=== PATIENT | female | born 1940 | race Caucasian/White ===

== ENCOUNTER 2021-01-03 12:41 | Inpatient (IN) | payer OTHER ==
[~2021-01-03] VITALS: Ht 167.6 cm; Wt 109.4 kg
[2021-01-03] VITALS (11 sets, daily range): BP systolic 126–144; BP diastolic 62–91
[2021-01-03 14:16] LABS: HEMATOCRIT 34.3 % (37.0-47.0); LYMPH # 0.7 10*3/uL (1.3-4.4); LYMPH % 9.2 % (27.0-41.0); MEAN CELL VOLUME 98.8 fl (81.0-99.0); MEAN CORPUSCULAR HGB 29.7 pg (27.0-31.0); MEAN PLATELET VOLUME 9.7 fl (9.6-12.3); MONO # 0.2 10*3/uL (0.1-1.0); NEUT % 87.9 % (47.0-73.0); PLATELET COUNT AUTOMATED 409 10*3/uL (130-400); RED BLOOD COUNT 3.47 10*6/uL (4.10-5.10); WHITE BLOOD COUNT 7.9 10*3/uL (4.8-10.8)
[2021-01-03 14:17] LABS: ACT PARTIAL THROMBO TIME 23.7 SECONDS (20.0-32.1); INTERNATIONAL NORM RATIO 0.9 (2.0-3.5)
[2021-01-03 14:19] LABS: ALBUMIN 2.4 gm/dl (3.1-4.5); CREATININE 1.49 mg/dL (0.55-1.02); TOTAL PROTEIN 6.5 gm/dL (6.4-8.2); TROPONIN I 0.018 ng/ml (<0.045)
[2021-01-04] VITALS: BP 111/59
[2021-01-04 06:05] LABS: BASO % 0.2 % (0.0-1.0); EOS % 0.4 % (1.0-4.0); HEMATOCRIT 33.1 % (37.0-47.0); LYMPH # 2.3 10*3/uL (1.3-4.4); LYMPH % 29.2 % (27.0-41.0); MEAN CELL VOLUME 99.1 fl (81.0-99.0); MEAN CORPUSCULAR HGB 30.2 pg (27.0-31.0); MEAN CORPUSCULAR HGB CONC 30.5 g/dl (33.0-37.0); MEAN PLATELET VOLUME 9.7 fl (9.6-12.3); MONO # 0.9 10*3/uL (0.1-1.0); MONO % 11.2 % (3.0-9.0); NEUT # 4.6 10*3/uL (2.3-7.9); NEUT % 57.6 % (47.0-73.0); PLATELET COUNT AUTOMATED 413 10*3/uL (130-400); RED BLOOD COUNT 3.34 10*6/uL (4.10-5.10); RED CELL DISTRI WIDTH 17.1 % (0-14.5)
[2021-01-04 06:13] LABS: CREATININE 1.38 mg/dL (0.55-1.02); FREE T4 1.18 ng/dl (0.76-1.46); POTASSIUM 4.4 mmol/L (3.5-5.1)
[2021-01-04 06:19] LABS: THYROID STIM HORMONE (HS) 1.05 uIU/ml (0.358-4.75)
[2021-01-04 07:27] LABS: VITAMIN D, 25-HYDROXY 23.1 ng/mL (30-100)
[2021-01-04 08:00] VITALS: BP 136/64
[2021-01-04] MEDS ORDERED: GLUCOPHAGE1000 MG PO (11:05)
[2021-01-04] MEDS ORDERED: NEURONTIN600 MG PO (11:05)
[2021-01-04] MEDS ORDERED: ACTOS30 M1 PO (11:06)
[2021-01-04] MEDS ORDERED: PAMELOR25 MG PO (11:07)
[2021-01-04] MEDS ORDERED: FERROUS GLUCON324 MG PO (11:08)
[2021-01-04] MEDS ORDERED: CARDIZEM30 MG PO (11:09)
[2021-01-04] MEDS ORDERED: HYDRALAZINE HYD50 MG PO (11:10)
[2021-01-04] MEDS ORDERED: LACTINEX 0.2 MG1 TAB PO (11:11)
[2021-01-04] MEDS ORDERED: METOPROLOL SUCC25 M2 PO (11:12)
[2021-01-04] MEDS ORDERED: MAGNESIUM400 M1 PO (11:15)
[2021-01-04] MEDS ORDERED: GLIPIZIDE/METFORMIN PO (11:15)
[2021-01-04] MEDS ORDERED: PRILOSEC20 M1 PO (11:15)
[2021-01-04 12:00] VITALS: BP 120/60
[2021-01-04 16:00] VITALS: BP 135/68
[2021-01-04 20:00] VITALS: BP 142/70
[2021-01-05] VITALS: BP 124/64
[2021-01-05 05:59] LABS: BASO % 0.2 % (0.0-1.0); EOS # 0.1 10*3/uL (0.0-0.4); EOS % 0.5 % (1.0-4.0); HEMATOCRIT 31.6 % (37.0-47.0); LYMPH # 2.1 10*3/uL (1.3-4.4); LYMPH % 22.5 % (27.0-41.0); MEAN CELL VOLUME 99.7 fl (81.0-99.0); MEAN CORPUSCULAR HGB 29.3 pg (27.0-31.0); MEAN CORPUSCULAR HGB CONC 29.4 g/dl (33.0-37.0); MEAN PLATELET VOLUME 9.5 fl (9.6-12.3); MONO # 0.9 10*3/uL (0.1-1.0); MONO % 9.6 % (3.0-9.0); NEUT # 6.1 10*3/uL (2.3-7.9); NEUT % 65.8 % (47.0-73.0); PLATELET COUNT AUTOMATED 339 10*3/uL (130-400); RED BLOOD COUNT 3.17 10*6/uL (4.10-5.10); RED CELL DISTRI WIDTH 16.8 % (0-14.5); WHITE BLOOD COUNT 9.2 10*3/uL (4.8-10.8)
[2021-01-05 06:13] LABS: CREATININE 1.39 mg/dL (0.55-1.02); POTASSIUM 3.7 mmol/L (3.5-5.1)
[2021-01-05 08:00] VITALS: BP 138/66
[2021-01-05 08:55] VITALS: BP 128/58
[2021-01-05 12:00] VITALS: BP 128/56
[2021-01-05 16:00] VITALS: BP 122/69
[2021-01-05 20:00] VITALS: BP 107/58
[2021-01-06] VITALS: BP 122/67
[2021-01-06 06:03] LABS: CREATININE 1.39 mg/dL (0.55-1.02); POTASSIUM 3.7 mmol/L (3.5-5.1)
[2021-01-06 06:07] LABS: BASO % 0.4 % (0.0-1.0); EOS # 0.1 10*3/uL (0.0-0.4); EOS % 0.8 % (1.0-4.0); HEMATOCRIT 33.3 % (37.0-47.0); LYMPH # 2.2 10*3/uL (1.3-4.4); LYMPH % 25.4 % (27.0-41.0); MEAN CORPUSCULAR HGB 29.4 pg (27.0-31.0); MEAN CORPUSCULAR HGB CONC 29.4 g/dl (33.0-37.0); MEAN PLATELET VOLUME 9.5 fl (9.6-12.3); MONO # 0.8 10*3/uL (0.1-1.0); MONO % 9.6 % (3.0-9.0); NEUT # 5.2 10*3/uL (2.3-7.9); NEUT % 61.7 % (47.0-73.0); PLATELET COUNT AUTOMATED 329 10*3/uL (130-400); RED BLOOD COUNT 3.33 10*6/uL (4.10-5.10); RED CELL DISTRI WIDTH 16.6 % (0-14.5); WHITE BLOOD COUNT 8.5 10*3/uL (4.8-10.8)
[2021-01-06 07:56] VITALS: BP 130/52
[2021-01-06 08:16] LABS: BILIRUBIN Negative (Negative); BLOOD Negative (Negative); CLARITY Turbid (Clear); COLOR Yellow (Yellow); GLUCOSE Trace (Negative); KETONE Trace (Negative); LEUKO ESTERASE 3+ (Negative); NITRITE Negative (Negative); SPECIFIC GRAVITY 1.015 (1.001-1.030); UROBILINOGEN 0.2 E.U./dl (0.0-1.0)
[2021-01-06 08:23] LABS: PH >= 9.0 (4.5-8.0)
[2021-01-06 08:25] LABS: BACTERIA 4+; WBC 31-40 wbc/hpf (0-5)
[2021-01-06 12:00] VITALS: BP 144/32
[2021-01-06 15:44] VITALS: BP 110/36
[2021-01-06 20:00] VITALS: BP 122/50
[2021-01-07] VITALS: BP 104/65
[2021-01-07 06:26] LABS: BASO % 0.4 % (0.0-1.0); EOS # 0.1 10*3/uL (0.0-0.4); EOS % 1.5 % (1.0-4.0); HEMATOCRIT 32.4 % (37.0-47.0); LYMPH # 2.1 10*3/uL (1.3-4.4); LYMPH % 24.5 % (27.0-41.0); MEAN CORPUSCULAR HGB 29.6 pg (27.0-31.0); MEAN CORPUSCULAR HGB CONC 29.6 g/dl (33.0-37.0); MEAN PLATELET VOLUME 9.7 fl (9.6-12.3); MONO # 0.9 10*3/uL (0.1-1.0); MONO % 10.3 % (3.0-9.0); NEUT # 5.2 10*3/uL (2.3-7.9); NEUT % 61.6 % (47.0-73.0); PLATELET COUNT AUTOMATED 306 10*3/uL (130-400); RED BLOOD COUNT 3.24 10*6/uL (4.10-5.10); RED CELL DISTRI WIDTH 16.4 % (0-14.5); WHITE BLOOD COUNT 8.5 10*3/uL (4.8-10.8)
[2021-01-07 06:51] LABS: CREATININE 1.63 mg/dL (0.55-1.02); POTASSIUM 3.5 mmol/L (3.5-5.1)
[2021-01-07 07:40] VITALS: BP 110/50
[2021-01-07 11:40] VITALS: BP 110/55
[2021-01-07 16:00] VITALS: BP 120/56
[2021-01-07 20:00] VITALS: BP 119/53
[2021-01-08] VITALS: BP 113/54
[2021-01-08 06:06] LABS: CREATININE 1.54 mg/dL (0.55-1.02)
[2021-01-08 06:35] LABS: POTASSIUM 4.5 mmol/L (3.5-5.1)
[2021-01-08 08:00] VITALS: BP 112/83
[2021-01-08 12:00] VITALS: BP 116/83
[2021-01-08 16:00] VITALS: BP 116/63
[2021-01-08 20:00] VITALS: BP 106/61
[2021-01-09] VITALS: BP 105/56
[2021-01-09 06:20] LABS: BASO % 0.3 % (0.0-1.0); EOS # 0.1 10*3/uL (0.0-0.4); EOS % 1.9 % (1.0-4.0); HEMATOCRIT 29.3 % (37.0-47.0); LYMPH # 2.3 10*3/uL (1.3-4.4); MEAN CELL VOLUME 99.3 fl (81.0-99.0); MEAN CORPUSCULAR HGB 29.2 pg (27.0-31.0); MEAN CORPUSCULAR HGB CONC 29.4 g/dl (33.0-37.0); MEAN PLATELET VOLUME 9.2 fl (9.6-12.3); NEUT # 3.9 10*3/uL (2.3-7.9); NEUT % 52.2 % (47.0-73.0); PLATELET COUNT AUTOMATED 254 10*3/uL (130-400); RED BLOOD COUNT 2.95 10*6/uL (4.10-5.10); RED CELL DISTRI WIDTH 16.2 % (0-14.5); WHITE BLOOD COUNT 7.5 10*3/uL (4.8-10.8)
[2021-01-09 06:29] LABS: INTERNATIONAL NORM RATIO 1.1 (2.0-3.5)
[2021-01-09 06:39] LABS: CREATININE 1.41 mg/dL (0.55-1.02)
[2021-01-09 06:47] LABS: POTASSIUM 3.4 mmol/L (3.5-5.1)
[2021-01-09 07:00] VITALS: BP 125/50
[2021-01-09 11:45] VITALS: BP 131/78
[2021-01-09 16:00] VITALS: BP 120/91
[2021-01-09 20:00] VITALS: BP 118/62
[2021-01-10] VITALS (9 sets, daily range): BP systolic 118–145; BP diastolic 47–74
[2021-01-10 06:37] LABS: BASO % 0.4 % (0.0-1.0); EOS # 0.2 10*3/uL (0.0-0.4); EOS % 1.9 % (1.0-4.0); HEMATOCRIT 30.2 % (37.0-47.0); LYMPH # 2.3 10*3/uL (1.3-4.4); LYMPH % 27.5 % (27.0-41.0); MEAN CORPUSCULAR HGB 29.2 pg (27.0-31.0); MEAN CORPUSCULAR HGB CONC 29.5 g/dl (33.0-37.0); MEAN PLATELET VOLUME 9.7 fl (9.6-12.3); MONO # 1.2 10*3/uL (0.1-1.0); MONO % 14.9 % (3.0-9.0); NEUT # 4.4 10*3/uL (2.3-7.9); NEUT % 53.4 % (47.0-73.0); NUCLEATED RED BLOOD CELL 0.2 % (0.0-0.0); PLATELET COUNT AUTOMATED 259 10*3/uL (130-400); RED BLOOD COUNT 3.05 10*6/uL (4.10-5.10); RED CELL DISTRI WIDTH 16.5 % (0-14.5); WHITE BLOOD COUNT 8.3 10*3/uL (4.8-10.8)
[2021-01-10 06:49] LABS: CREATININE 1.37 mg/dL (0.55-1.02); POTASSIUM 3.5 mmol/L (3.5-5.1)
[2021-01-10] MEDS ORDERED: NEURONTIN600 MG PO (15:57)
[2021-01-10] MEDS ORDERED: FUROSEMIDE40 MG PO (15:57)
[2021-01-10] MEDS ORDERED: Humalog SQ (15:57)
[2021-01-10] MEDS ORDERED: VITAMIN D350 MC2 PO (15:57)
[2021-01-10] MEDS ORDERED: METOPROLOL SUC100 M1 PO (15:57)
[2021-01-10] MEDS ORDERED: HYDROCODONE-AC1 EAC1 PO (16:27)
[2021-01-11] VITALS (8 sets, daily range): BP systolic 127–149; BP diastolic 55–86
[2021-01-11 06:44] LABS: BASO % 0.4 % (0.0-1.0); EOS # 0.2 10*3/uL (0.0-0.4); EOS % 1.9 % (1.0-4.0); HEMATOCRIT 31.9 % (37.0-47.0); LYMPH # 2.6 10*3/uL (1.3-4.4); MEAN CELL VOLUME 100.9 fl (81.0-99.0); MEAN CORPUSCULAR HGB 29.4 pg (27.0-31.0); MEAN CORPUSCULAR HGB CONC 29.2 g/dl (33.0-37.0); MEAN PLATELET VOLUME 9.4 fl (9.6-12.3); MONO # 1.2 10*3/uL (0.1-1.0); MONO % 12.9 % (3.0-9.0); NEUT # 5.1 10*3/uL (2.3-7.9); NEUT % 54.9 % (47.0-73.0); NUCLEATED RED BLOOD CELL 0.3 % (0.0-0.0); PLATELET COUNT AUTOMATED 271 10*3/uL (130-400); RED BLOOD COUNT 3.16 10*6/uL (4.10-5.10); RED CELL DISTRI WIDTH 16.5 % (0-14.5); WHITE BLOOD COUNT 9.3 10*3/uL (4.8-10.8)
[2021-01-11 07:02] LABS: CREATININE 1.13 mg/dL (0.55-1.02); POTASSIUM 3.6 mmol/L (3.5-5.1)
[2021-01-12] VITALS (8 sets, daily range): BP systolic 107–149; BP diastolic 60–90
[2021-01-12 01:37] LABS: HEMATOCRIT 31.8 % (37.0-47.0); MEAN CELL VOLUME 100.6 fl (81.0-99.0); MEAN CORPUSCULAR HGB 29.4 pg (27.0-31.0); MEAN CORPUSCULAR HGB CONC 29.2 g/dl (33.0-37.0); MEAN PLATELET VOLUME 9.4 fl (9.6-12.3); NUCLEATED RED BLOOD CELL 0.1 10*3/uL (0.0-0.0); NUCLEATED RED BLOOD CELL 0.5 % (0.0-0.0); PLATELET COUNT AUTOMATED 306 10*3/uL (130-400); RED BLOOD COUNT 3.16 10*6/uL (4.10-5.10); RED CELL DISTRI WIDTH 16.5 % (0-14.5); WHITE BLOOD COUNT 11.8 10*3/uL (4.8-10.8)
[2021-01-12 01:58] LABS: ALBUMIN 1.9 gm/dl (3.1-4.5); CREATININE 1.47 mg/dL (0.55-1.02); POTASSIUM 3.7 mmol/L (3.5-5.1); TOTAL PROTEIN 6.3 gm/dL (6.4-8.2)
[2021-01-12 01:59] LABS: TROPONIN I 0.015 ng/ml (<0.045)
[2021-01-12 02:20] LABS: PLATELET SUFFICIENCY NORMAL (NORMAL); TOTAL CELLS COUNTED 100 #CELLS
[2021-01-12 03:55] LABS: HEMATOCRIT 30.8 % (37.0-47.0); MEAN CELL VOLUME 100.3 fl (81.0-99.0); MEAN CORPUSCULAR HGB 29.6 pg (27.0-31.0); MEAN CORPUSCULAR HGB CONC 29.5 g/dl (33.0-37.0); MEAN PLATELET VOLUME 9.4 fl (9.6-12.3); NUCLEATED RED BLOOD CELL 0.1 10*3/uL (0.0-0.0); NUCLEATED RED BLOOD CELL 0.7 % (0.0-0.0); PLATELET COUNT AUTOMATED 286 10*3/uL (130-400); RED BLOOD COUNT 3.07 10*6/uL (4.10-5.10); RED CELL DISTRI WIDTH 16.6 % (0-14.5); WHITE BLOOD COUNT 11.8 10*3/uL (4.8-10.8)
[2021-01-12 04:08] LABS: CREATININE 1.44 mg/dL (0.55-1.02); POTASSIUM 3.7 mmol/L (3.5-5.1)
[2021-01-12 04:55] LABS: BURR CELLS FEW; PLATELET SUFFICIENCY NORMAL (NORMAL); TOTAL CELLS COUNTED 100 #CELLS
[2021-01-13] VITALS: BP 114/49; BP 135/62
[2021-01-13 06:45] LABS: POTASSIUM 3.5 mmol/L (3.5-5.1)
[2021-01-13 06:51] LABS: CREATININE 1.54 mg/dL (0.55-1.02)
[2021-01-13 08:00] VITALS: BP 131/59
[2021-01-13 12:00] VITALS: BP 109/76
[2021-01-13 18:00] VITALS: BP 128/67
[2021-01-13 20:00] VITALS: BP 122/47
[2021-01-14] VITALS: BP 114/49
[2021-01-14 08:00] VITALS: BP 150/70
[2021-01-14 08:30] VITALS: BP 116/68
[2021-01-14 12:00] VITALS: BP 134/64
[2021-01-14 16:00] VITALS: BP 131/96
[2021-01-14 20:00] VITALS: BP 86/47
[2021-01-15] VITALS: BP 100/56
[2021-01-15 08:00] VITALS: BP 120/50
[2021-01-15 08:30] VITALS: BP 108/50
[2021-01-15 12:00] VITALS: BP 122/45
[2021-01-15] MEDS ORDERED: XARE15TA PO (14:12)
[2021-01-15] MEDS ORDERED: PACERONE200 MG PO (14:12)
[2021-01-15] MEDS ORDERED: OXYCONTIN10 M1 PO (14:12)
[2021-01-15] MEDS ORDERED: OXYCODONE HCL5 MG PO (14:12)
[2021-01-15 16:00] VITALS: BP 119/50
== END 2021-01-15 16:13 | DRG 551 ==
LOC: ED 12:41 → EDHOLD 15:24 → 5E 15:24
PROVIDERS: Emergency Medicine; Family Medicine; Hospitalist; Internal Medicine; Social Worker Clinical; Student in an Organized Health Care Education/Training Program; ADMIT Internal Medicine; ATTEND Internal Medicine
PROC: 5A2204Z Restoration of Cardiac Rhythm, Single (ICD-10-PCS; principal; 2021-01-10)
PROC: B24BZZ4 Ultrasonography of Heart with Aorta, Transesophageal (ICD-10-PCS; 2021-01-10)
DX: S32.020A Wedge compression fracture of second lumbar vertebra, initial encounter for closed fracture (principal); N17.0 Acute kidney failure with tubular necrosis; E43 Unspecified severe protein-calorie malnutrition; I50.33 Acute on chronic diastolic (congestive) heart failure; I13.0 Hypertensive heart and chronic kidney disease with heart failure and stage 1 through stage 4 chronic kidney disease, or unspecified chronic kidney disease; E87.1 Hypo-osmolality and hyponatremia; L12.0 Bullous pemphigoid; Z68.41 Body mass index [BMI] 40.0-44.9, adult; L97.929 Non-pressure chronic ulcer of unspecified part of left lower leg with unspecified severity; L97.819 Non-pressure chronic ulcer of other part of right lower leg with unspecified severity; N39.0 Urinary tract infection, site not specified; I48.0 Paroxysmal atrial fibrillation; E11.65 Type 2 diabetes mellitus with hyperglycemia; D64.9 Anemia, unspecified; D47.3 Essential (hemorrhagic) thrombocythemia; Z20.822 Contact with and (suspected) exposure to COVID-19; I87.2 Venous insufficiency (chronic) (peripheral); E11.622 Type 2 diabetes mellitus with other skin ulcer; N18.9 Chronic kidney disease, unspecified; E11.22 Type 2 diabetes mellitus with diabetic chronic kidney disease; X58.XXXA Exposure to other specified factors, initial encounter; E66.01 Morbid (severe) obesity due to excess calories; E11.42 Type 2 diabetes mellitus with diabetic polyneuropathy; M48.061 Spinal stenosis, lumbar region without neurogenic claudication; M19.90 Unspecified osteoarthritis, unspecified site; Z88.1 Allergy status to other antibiotic agents; Z88.6 Allergy status to analgesic agent; Z88.8 Allergy status to other drugs, medicaments and biological substances; Z90.49 Acquired absence of other specified parts of digestive tract; I25.2 Old myocardial infarction; Z82.49 Family history of ischemic heart disease and other diseases of the circulatory system; Z79.899 Other long term (current) drug therapy; Y93.89 Activity, other specified; Y92.89 Other specified places as the place of occurrence of the external cause; Y99.8 Other external cause status

== ENCOUNTER 2021-01-21 18:59 | Observation (INO) | payer OTHER ==
[~2021-01-21] VITALS: Ht 167.6 cm; Wt 104.4 kg
[~2021-01-21 18:59] MED LIST: ACTOS30 M1 PO; CARDIZEM30 MG PO; FERROUS GLUCON324 MG PO; FUROSEMIDE40 MG PO; GLIPIZIDE/METFORMIN PO; GLUCOPHAGE1000 MG PO; HYDRALAZINE HYD50 MG PO; HYDROCODONE-AC1 EAC1 PO; Humalog SQ; LACTINEX 0.2 MG1 TAB PO; MAGNESIUM400 M1 PO; METOPROLOL SUC100 M1 PO; METOPROLOL SUCC25 M2 PO; NEURONTIN600 MG PO; OXYCODONE HCL5 MG PO; OXYCONTIN10 M1 PO; PACERONE200 MG PO; PAMELOR25 MG PO; PRILOSEC20 M1 PO; VITAMIN D350 MC2 PO; XARE15TA PO
[2021-01-21 19:09] VITALS: BP 125/100
[2021-01-21 19:11] LABS: BASO # 0.1 10*3/uL (0.0-0.1); BASO % 0.5 % (0.0-1.0); EOS # 0.1 10*3/uL (0.0-0.4); EOS % 0.5 % (1.0-4.0); HEMATOCRIT 35.2 % (37.0-47.0); LYMPH # 3.5 10*3/uL (1.3-4.4); LYMPH % 34.6 % (27.0-41.0); MEAN CELL VOLUME 101.4 fl (81.0-99.0); MEAN CORPUSCULAR HGB 29.4 pg (27.0-31.0); MEAN PLATELET VOLUME 9.3 fl (9.6-12.3); MONO # 1.2 10*3/uL (0.1-1.0); MONO % 11.3 % (3.0-9.0); NEUT # 5.2 10*3/uL (2.3-7.9); NUCLEATED RED BLOOD CELL 0.2 % (0.0-0.0); PLATELET COUNT AUTOMATED 450 10*3/uL (130-400); RED BLOOD COUNT 3.47 10*6/uL (4.10-5.10); WHITE BLOOD COUNT 10.2 10*3/uL (4.8-10.8)
[2021-01-21 19:18] LABS: ACT PARTIAL THROMBO TIME 26.6 SECONDS (20.0-32.1); INTERNATIONAL NORM RATIO 1.1 (2.0-3.5)
[2021-01-21 19:25] LABS: ALBUMIN 2.1 gm/dl (3.1-4.5); ALKALINE PHOSPHATASE 88 U/L (45-117); BUN 34 mg/dl (7-24); CHLORIDE 103 mmol/L (98-107); CREATININE 1.28 mg/dL (0.55-1.02); POTASSIUM 3.8 mmol/L (3.5-5.1); SGOT/AST 22 IU/L (3-35); SGPT/ALT 22 U/L (12-78); SODIUM 140 mmol/L (136-145); TOTAL PROTEIN 6.4 gm/dL (6.4-8.2)
[2021-01-21 19:27] LABS: TROPONIN I < 0.015 ng/ml (<0.045)
[2021-01-21 20:22] LABS: BILIRUBIN Negative (Negative); BLOOD Negative (Negative); CLARITY Clear (Clear); COLOR Yellow (Yellow); GLUCOSE Negative (Negative); KETONE Negative (Negative); LEUKO ESTERASE 3+ (Negative); NITRITE Positive (Negative); PH 5.5 (4.5-8.0); UROBILINOGEN 0.2 E.U./dl (0.0-1.0)
[2021-01-21 20:32] LABS: BACTERIA 2+; EPITHELIAL CELLS 0-2; RBC 0-2 rbc/hpf (0-2); WBC 21-30 wbc/hpf (0-5); YEAST TRACE
[2021-01-21 21:52] VITALS: BP 124/90
[2021-01-21 23:52] VITALS: BP 146/56
[2021-01-22 00:40] VITALS: BP 124/49
[2021-01-22 01:00] VITALS: BP 143/75
[2021-01-22] MEDS ORDERED: AMIODARONE HYD200 MG PO (07:29)
[2021-01-22] MEDS ORDERED: DOXYCYCLINE100 M3 PO (07:31)
[2021-01-22] MEDS ORDERED: ATARAX,VISTARIL10 MG PO (07:33)
[2021-01-22 08:00] VITALS: BP 122/47
[2021-01-22 12:00] VITALS: BP 131/81
[2021-01-22 16:00] VITALS: BP 150/70
[2021-01-22 16:57] LABS: BILIRUBIN Negative (Negative); BLOOD Negative (Negative); CLARITY Clear (Clear); COLOR Yellow (Yellow); GLUCOSE Negative (Negative); KETONE Negative (Negative); LEUKO ESTERASE 2+ (Negative); NITRITE Negative (Negative); UROBILINOGEN 0.2 E.U./dl (0.0-1.0)
[2021-01-22 17:07] LABS: BACTERIA TRACE; WBC 31-40 wbc/hpf (0-5); YEAST 1+
[2021-01-22 19:41] VITALS: BP 138/65
[2021-01-23] VITALS: BP 126/60
[2021-01-23 08:00] VITALS: BP 158/57
[2021-01-23 12:00] VITALS: BP 154/64
[2021-01-23 16:00] VITALS: BP 155/60
[2021-01-23 20:00] VITALS: BP 130/77
[2021-01-24] VITALS: BP 133/50
[2021-01-24 08:00] VITALS: BP 139/63
[2021-01-24 12:00] VITALS: BP 147/57
[2021-01-24 16:00] VITALS: BP 132/54
[2021-01-24 20:00] VITALS: BP 127/55; BP 154/65
[2021-01-25] VITALS: BP 124/52
[2021-01-25 08:00] VITALS: BP 125/95
[2021-01-25 12:00] VITALS: BP 150/57
[2021-01-25 16:00] VITALS: BP 134/73
== END 2021-01-25 19:43 ==
LOC: ED 18:59 → 5E 22:59 → EDHOLD 22:59 → 5E 22:59
PROVIDERS: Emergency Medicine; Student in an Organized Health Care Education/Training Program; ADMIT Internal Medicine; ATTEND Internal Medicine
DX: N39.0 Urinary tract infection, site not specified (principal); B96.20 Unspecified Escherichia coli [E. coli] as the cause of diseases classified elsewhere; L12.0 Bullous pemphigoid; Z20.822 Contact with and (suspected) exposure to COVID-19; E43 Unspecified severe protein-calorie malnutrition; M84.48XA Pathological fracture, other site, initial encounter for fracture; E11.40 Type 2 diabetes mellitus with diabetic neuropathy, unspecified; D64.9 Anemia, unspecified; D47.3 Essential (hemorrhagic) thrombocythemia; E66.01 Morbid (severe) obesity due to excess calories; I48.21 Permanent atrial fibrillation; G93.41 Metabolic encephalopathy; R62.7 Adult failure to thrive; Z68.37 Body mass index [BMI] 37.0-37.9, adult; Z88.1 Allergy status to other antibiotic agents; Z88.2 Allergy status to sulfonamides; Z88.8 Allergy status to other drugs, medicaments and biological substances

== ENCOUNTER 2021-02-12 14:08 | Observation (INO) | payer OTHER ==
[~2021-02-12] VITALS: Ht 167.6 cm; Wt 100.4 kg
[~2021-02-12 14:08] MED LIST changes: +AMIODARONE HYD200 MG PO; +ATARAX,VISTARIL10 MG PO; +DOXYCYCLINE100 M3 PO
[2021-02-12 14:18] VITALS: BP 83/51
[2021-02-12 14:40] VITALS: BP 119/40
[2021-02-12 14:41] LABS: BASO % 0.4 % (0.0-1.0); EOS # 0.1 10*3/uL (0.0-0.4); EOS % 0.5 % (1.0-4.0); LYMPH # 2.3 10*3/uL (1.3-4.4); LYMPH % 22.4 % (27.0-41.0); MEAN CORPUSCULAR HGB 29.6 pg (27.0-31.0); MEAN CORPUSCULAR HGB CONC 31.1 g/dl (33.0-37.0); MEAN PLATELET VOLUME 9.7 fl (9.6-12.3); MONO # 1.2 10*3/uL (0.1-1.0); MONO % 11.8 % (3.0-9.0); NEUT # 6.5 10*3/uL (2.3-7.9); NEUT % 64.4 % (47.0-73.0); PLATELET COUNT AUTOMATED 488 10*3/uL (130-400); RED BLOOD COUNT 3.79 10*6/uL (4.10-5.10); WHITE BLOOD COUNT 10.1 10*3/uL (4.8-10.8)
[2021-02-12 14:53] LABS: ACT PARTIAL THROMBO TIME 40.4 SECONDS (20.0-32.1); INTERNATIONAL NORM RATIO 1.3 (2.0-3.5)
[2021-02-12 14:57] LABS: ALKALINE PHOSPHATASE 87 U/L (45-117); BUN 52 mg/dl (7-24); CHLORIDE 102 mmol/L (98-107); CREATININE 2.17 mg/dL (0.55-1.02); LIPASE 45 U/L (73-393); POTASSIUM 5.4 mmol/L (3.5-5.1); SGOT/AST 11 IU/L (3-35); SGPT/ALT 17 U/L (12-78); SODIUM 134 mmol/L (136-145); TOTAL PROTEIN 6.6 gm/dL (6.4-8.2)
[2021-02-12 15:00] LABS: TROPONIN I < 0.015 ng/ml (<0.045)
[2021-02-12 15:33] VITALS: BP 108/79
[2021-02-12 17:58] VITALS: BP 106/38
[2021-02-12 21:03] VITALS: BP 118/37
[2021-02-12] MEDS ORDERED: BUTRANS1 EAC2 TD (21:47)
[2021-02-12] MEDS ORDERED: GABAPENTIN100 M2 PO (21:49)
[2021-02-12] MEDS ORDERED: MEGACE 40400 MG/10 PO (21:52)
[2021-02-12] MEDS ORDERED: MIRAPEX1 MG PO (21:53)
[2021-02-12] MEDS ORDERED: MIRTAZAPINE15 M2 PO (21:54)
[2021-02-12] MEDS ORDERED: OXYCODONE5 M1 PO (21:58)
[2021-02-12] MEDS ORDERED: KLOR-CON 1010 ME1 PO (22:00)
[2021-02-13] VITALS: BP 114/51
[2021-02-13 06:26] LABS: BASO # 0.1 10*3/uL (0.0-0.1); BASO % 0.6 % (0.0-1.0); EOS # 0.2 10*3/uL (0.0-0.4); EOS % 2.3 % (1.0-4.0); HEMATOCRIT 31.3 % (37.0-47.0); LYMPH # 3.1 10*3/uL (1.3-4.4); LYMPH % 34.5 % (27.0-41.0); MEAN CELL VOLUME 96.3 fl (81.0-99.0); MEAN CORPUSCULAR HGB 29.2 pg (27.0-31.0); MEAN CORPUSCULAR HGB CONC 30.4 g/dl (33.0-37.0); MEAN PLATELET VOLUME 9.9 fl (9.6-12.3); MONO # 1.2 10*3/uL (0.1-1.0); MONO % 13.3 % (3.0-9.0); NEUT # 4.4 10*3/uL (2.3-7.9); PLATELET COUNT AUTOMATED 411 10*3/uL (130-400); RED BLOOD COUNT 3.25 10*6/uL (4.10-5.10)
[2021-02-13 06:36] LABS: CREATININE 1.67 mg/dL (0.55-1.02); POTASSIUM 4.8 mmol/L (3.5-5.1)
[2021-02-13 08:10] VITALS: BP 120/50
[2021-02-13 12:15] VITALS: BP 115/38
[2021-02-13 16:10] VITALS: BP 114/40
[2021-02-13 20:00] VITALS: BP 118/45
[2021-02-13 22:18] LABS: BILIRUBIN Negative (Negative); BLOOD Negative (Negative); CLARITY Cloudy (Clear); COLOR Yellow (Yellow); GLUCOSE Negative (Negative); KETONE Negative (Negative); LEUKO ESTERASE 3+ (Negative); NITRITE Negative (Negative); UROBILINOGEN 0.2 E.U./dl (0.0-1.0)
[2021-02-13 22:26] LABS: URINE CREATININE RANDOM 36.6 mg/dL
[2021-02-13 22:36] LABS: BACTERIA 4+; WBC 16-20 wbc/hpf (0-5)
[2021-02-14] VITALS: BP 137/57
[2021-02-14 08:00] VITALS: BP 120/68
[2021-02-14 11:43] LABS: CREATININE 1.38 mg/dL (0.55-1.02); POTASSIUM 4.4 mmol/L (3.5-5.1)
[2021-02-14 11:46] VITALS: BP 121/54
[2021-02-14 12:00] VITALS: BP 144/86
[2021-02-14 16:00] VITALS: BP 126/92
[2021-02-14 20:00] VITALS: BP 135/90
[2021-02-15] VITALS: BP 140/68
[2021-02-15 08:00] VITALS: BP 141/58
[2021-02-15 12:00] VITALS: BP 116/64
[2021-02-15 16:00] VITALS: BP 112/82; BP 148/68
[2021-02-15 20:00] VITALS: BP 120/62
[2021-02-16] VITALS: BP 137/59
[2021-02-16 08:00] VITALS: BP 122/92
[2021-02-16 12:00] VITALS: BP 134/49
[2021-02-16 16:00] VITALS: BP 138/41
[2021-02-16 20:00] VITALS: BP 134/55
[2021-02-17] VITALS (7 sets, daily range): BP systolic 118–169; BP diastolic 43–80
[2021-02-18 12:00] VITALS: BP 148/62
[2021-02-18] MEDS ORDERED: OXYCODONE HCL5 MG PO (15:20)
[2021-02-18] MEDS ORDERED: AUGMENTIN 875-875 MG PO (15:20)
[2021-02-18 16:00] VITALS: BP 136/65
== END 2021-02-18 18:12 | disposition home or self-care (01) ==
LOC: ED 14:08 → 5E 16:31 → EDHOLD 16:31 → 5E 16:31
PROVIDERS: Emergency Medicine; Internal Medicine Nephrology; ADMIT Internal Medicine; ATTEND Internal Medicine
DX: N39.0 Urinary tract infection, site not specified (principal); B96.4 Proteus (mirabilis) (morganii) as the cause of diseases classified elsewhere; Z20.822 Contact with and (suspected) exposure to COVID-19; N17.9 Acute kidney failure, unspecified; R62.7 Adult failure to thrive; E87.5 Hyperkalemia; E86.0 Dehydration; I95.9 Hypotension, unspecified; E86.1 Hypovolemia; G93.41 Metabolic encephalopathy; R41.82 Altered mental status, unspecified; I11.0 Hypertensive heart disease with heart failure; I50.32 Chronic diastolic (congestive) heart failure; E11.42 Type 2 diabetes mellitus with diabetic polyneuropathy; I48.21 Permanent atrial fibrillation; E43 Unspecified severe protein-calorie malnutrition; L12.0 Bullous pemphigoid; M54.9 Dorsalgia, unspecified; F32.9 Major depressive disorder, single episode, unspecified; E66.01 Morbid (severe) obesity due to excess calories; Z68.36 Body mass index [BMI] 36.0-36.9, adult; Z79.899 Other long term (current) drug therapy; Z79.4 Long term (current) use of insulin

== ENCOUNTER 2021-03-20 11:09 | Inpatient (IN) | payer OTHER, MEDICAID ==
[2021-03-20] VITALS (15 sets, daily range): BP systolic 97–133; BP diastolic 35–72
[~2021-03-20] VITALS: Ht 165.1 cm; Wt 109.8 kg
[~2021-03-20 11:09] MED LIST changes: +AUGMENTIN 875-875 MG PO; +BUTRANS1 EAC2 TD; +GABAPENTIN100 M2 PO; +KLOR-CON 1010 ME1 PO; +MEGACE 40400 MG/10 PO; +MIRAPEX1 MG PO; +MIRTAZAPINE15 M2 PO; +OXYCODONE5 M1 PO
[2021-03-20 11:44] LABS: MEAN CELL VOLUME 104.5 fl (81.0-99.0); MEAN CORPUSCULAR HGB 30.2 pg (27.0-31.0); MEAN CORPUSCULAR HGB CONC 28.9 g/dl (33.0-37.0); MEAN PLATELET VOLUME 10.1 fl (9.6-12.3); NUCLEATED RED BLOOD CELL 0.2 10*3/uL (0.0-0.0); NUCLEATED RED BLOOD CELL 1.9 % (0.0-0.0); PLATELET COUNT AUTOMATED 415 10*3/uL (130-400); RED BLOOD COUNT 1.79 10*6/uL (4.10-5.10); RED CELL DISTRI WIDTH 18.6 % (0-14.5); WHITE BLOOD COUNT 11.1 10*3/uL (4.8-10.8)
[2021-03-20 11:47] LABS: HEMATOCRIT 18.7 % (37.0-47.0)
[2021-03-20 11:55] LABS: ACT PARTIAL THROMBO TIME 36.5 SECONDS (20.0-32.1); INTERNATIONAL NORM RATIO 1.3 (2.0-3.5)
[2021-03-20 11:59] LABS: ALBUMIN 1.7 gm/dl (3.1-4.5); ALKALINE PHOSPHATASE 71 U/L (45-117); BUN 62 mg/dl (7-24); CHLORIDE 116 mmol/L (98-107); CREATININE 1.53 mg/dL (0.55-1.02); IRON 84 ug/dL (50-170); LIPASE 118 U/L (73-393); POTASSIUM 4.9 mmol/L (3.5-5.1); SGOT/AST 14 IU/L (3-35); SGPT/ALT 13 U/L (12-78); SODIUM 140 mmol/L (136-145); TOTAL IRON BINDING CAPACITY 215 ug/dl (250-450); TOTAL PROTEIN 5.6 gm/dL (6.4-8.2)
[2021-03-20 12:04] LABS: PLATELET SUFFICIENCY HIGH (NORMAL); POLYCHROMASIA SLIGHT; ROULEAUX MODERATE; TOTAL CELLS COUNTED 100 #CELLS
[2021-03-20 12:06] LABS: TROPONIN I < 0.015 ng/ml (<0.045)
[2021-03-20 13:26] LABS: FERRITIN 367.6 ng/mL (10.0-291.0)
[2021-03-20] MEDS ORDERED: RIVASTIGMINE TAR3 M1 PO (15:46)
[2021-03-20] MEDS ORDERED: NAMENDA5 M1 PO (15:47)
[2021-03-20] MEDS ORDERED: CLOBETASOL EMOL50 GM T (15:49)
[2021-03-20] MEDS ORDERED: TYLENOL EXTRA500 MG PO (15:50)
[2021-03-20] MEDS ORDERED: IMODIUM A-D2 M2 PO ×2 (15:53→15:54)
[2021-03-20 23:31] LABS: HEMATOCRIT 24.1 % (37.0-47.0)
[2021-03-21] VITALS: BP 109/45
[2021-03-21 04:00] VITALS: BP 122/50
[2021-03-21 05:06] LABS: ALBUMIN 1.6 gm/dl (3.1-4.5); CREATININE 1.21 mg/dL (0.55-1.02); POTASSIUM 4.5 mmol/L (3.5-5.1); TOTAL PROTEIN 5.3 gm/dL (6.4-8.2)
[2021-03-21 06:56] LABS: HEMATOCRIT 22.7 % (37.0-47.0); MEAN CORPUSCULAR HGB 30.3 pg (27.0-31.0); MEAN CORPUSCULAR HGB CONC 30.8 g/dl (33.0-37.0); MEAN PLATELET VOLUME 10.4 fl (9.6-12.3); NUCLEATED RED BLOOD CELL 0.2 10*3/uL (0.0-0.0); NUCLEATED RED BLOOD CELL 1.7 % (0.0-0.0); PLATELET COUNT AUTOMATED 338 10*3/uL (130-400); RED BLOOD COUNT 2.31 10*6/uL (4.10-5.10); WHITE BLOOD COUNT 10.5 10*3/uL (4.8-10.8)
[2021-03-21 07:10] LABS: MEAN CELL VOLUME 98.3 fl (81.0-99.0)
[2021-03-21 07:12] LABS: BASOPHILS 1 % (0-1); OVALOCYTES FEW; PLATELET SUFFICIENCY NORMAL (NORMAL); POLYCHROMASIA SLIGHT; ROULEAUX SLIGHT; TOTAL CELLS COUNTED 100 #CELLS
[2021-03-21 08:00] VITALS: BP 137/50
[2021-03-21 09:33] LABS: IRON 54 ug/dL (50-170); TOTAL IRON BINDING CAPACITY 246 ug/dl (250-450)
[2021-03-21 12:00] VITALS: BP 131/51
[2021-03-21 16:00] VITALS: BP 149/47
[2021-03-21 20:00] VITALS: BP 113/66
[2021-03-22] VITALS (9 sets, daily range): BP systolic 93–160; BP diastolic 41–77
[2021-03-23] VITALS: BP 120/60
[2021-03-23 04:00] VITALS: BP 113/33
[2021-03-23 04:40] LABS: BASO % 0.1 % (0.0-1.0); EOS # 0.2 10*3/uL (0.0-0.4); EOS % 1.9 % (1.0-4.0); HEMATOCRIT 24.1 % (37.0-47.0); LYMPH % 22.2 % (27.0-41.0); MEAN CELL VOLUME 101.3 fl (81.0-99.0); MEAN CORPUSCULAR HGB 30.3 pg (27.0-31.0); MEAN CORPUSCULAR HGB CONC 29.9 g/dl (33.0-37.0); MEAN PLATELET VOLUME 9.1 fl (9.6-12.3); MONO # 1.1 10*3/uL (0.1-1.0); MONO % 12.6 % (3.0-9.0); NEUT # 5.6 10*3/uL (2.3-7.9); NEUT % 61.5 % (47.0-73.0); PLATELET COUNT AUTOMATED 347 10*3/uL (130-400); RED BLOOD COUNT 2.38 10*6/uL (4.10-5.10); RED CELL DISTRI WIDTH 19.2 % (0-14.5)
[2021-03-23 08:00] VITALS: BP 141/53
[2021-03-23 12:00] VITALS: BP 128/49
[2021-03-23 16:00] VITALS: BP 138/69
[2021-03-23 20:00] VITALS: BP 155/65
[2021-03-24] VITALS (14 sets, daily range): BP systolic 114–155; BP diastolic 40–80
[2021-03-24 05:33] LABS: BUN 25 mg/dl (7-24); CHLORIDE 116 mmol/L (98-107); CREATININE 0.95 mg/dL (0.55-1.02); POTASSIUM 3.9 mmol/L (3.5-5.1); SODIUM 142 mmol/L (136-145)
[2021-03-24 06:14] LABS: HEMATOCRIT 22.1 % (37.0-47.0); MEAN CORPUSCULAR HGB 30.8 pg (27.0-31.0); MEAN CORPUSCULAR HGB CONC 30.8 g/dl (33.0-37.0); MEAN PLATELET VOLUME 9.5 fl (9.6-12.3); PLATELET COUNT AUTOMATED 299 10*3/uL (130-400); RED BLOOD COUNT 2.21 10*6/uL (4.10-5.10); WHITE BLOOD COUNT 8.6 10*3/uL (4.8-10.8)
[2021-03-24 06:46] LABS: BASOPHILS 1 % (0-1); PLATELET SUFFICIENCY NORMAL (NORMAL); TOTAL CELLS COUNTED 100 #CELLS
[2021-03-24 06:47] LABS: BURR CELLS FEW; POLYCHROMASIA SLIGHT
[2021-03-24] MEDS ORDERED: Ipratropium Brom3 ML INH (15:08)
[2021-03-24 17:52] LABS: BASO % 0.2 % (0.0-1.0); EOS # 0.1 10*3/uL (0.0-0.4); EOS % 1.4 % (1.0-4.0); HEMATOCRIT 29.5 % (37.0-47.0); LYMPH # 1.5 10*3/uL (1.3-4.4); MEAN CORPUSCULAR HGB CONC 32.2 g/dl (33.0-37.0); MONO # 1.1 10*3/uL (0.1-1.0); MONO % 11.8 % (3.0-9.0); NEUT # 6.3 10*3/uL (2.3-7.9); NEUT % 69.3 % (47.0-73.0); PLATELET COUNT AUTOMATED 295 10*3/uL (130-400); RED BLOOD COUNT 3.06 10*6/uL (4.10-5.10); RED CELL DISTRI WIDTH 18.7 % (0-14.5); WHITE BLOOD COUNT 9.1 10*3/uL (4.8-10.8)
[2021-03-24 17:59] LABS: MEAN CELL VOLUME 96.4 fl (81.0-99.0)
[2021-03-25] VITALS: BP 119/74
[2021-03-25 06:21] LABS: BASO % 0.2 % (0.0-1.0); EOS # 0.2 10*3/uL (0.0-0.4); EOS % 1.8 % (1.0-4.0); HEMATOCRIT 29.8 % (37.0-47.0); LYMPH # 1.8 10*3/uL (1.3-4.4); LYMPH % 20.7 % (27.0-41.0); MEAN CELL VOLUME 94.6 fl (81.0-99.0); MEAN CORPUSCULAR HGB 30.5 pg (27.0-31.0); MEAN CORPUSCULAR HGB CONC 32.2 g/dl (33.0-37.0); MEAN PLATELET VOLUME 10.4 fl (9.6-12.3); MONO # 1.1 10*3/uL (0.1-1.0); MONO % 12.3 % (3.0-9.0); NEUT # 5.5 10*3/uL (2.3-7.9); NEUT % 63.6 % (47.0-73.0); PLATELET COUNT AUTOMATED 240 10*3/uL (130-400); RED BLOOD COUNT 3.15 10*6/uL (4.10-5.10); RED CELL DISTRI WIDTH 18.7 % (0-14.5); WHITE BLOOD COUNT 8.6 10*3/uL (4.8-10.8)
[2021-03-25 12:00] VITALS: BP 151/83
[2021-03-25 16:00] VITALS: BP 159/72
[2021-03-25 20:00] VITALS: BP 144/66
[2021-03-26] VITALS: BP 143/58
[2021-03-26 08:00] VITALS: BP 171/77
[2021-03-26] MEDS ORDERED: OXYCODONE5 M1 PO (08:42)
[2021-03-26] MEDS ORDERED: BUTRANS1 EAC2 TD (08:43)
[2021-03-26 12:00] VITALS: BP 168/74
== END 2021-03-26 13:09 | DRG 377 ==
LOC: ED 11:09 → EDHOLD 13:44 → ICCU 13:44
PROVIDERS: Emergency Medicine; Internal Medicine Gastroenterology; ADMIT Internal Medicine; ATTEND Internal Medicine
PROC: 30233N1 Transfusion of Nonautologous Red Blood Cells into Peripheral Vein, Percutaneous Approach (ICD-10-PCS; principal; 2021-03-20)
PROC: 0DB68ZX Excision of Stomach, Via Natural or Artificial Opening Endoscopic, Diagnostic (ICD-10-PCS; 2021-03-22)
PROC: 0DBL8ZZ Excision of Transverse Colon, Via Natural or Artificial Opening Endoscopic (ICD-10-PCS; 2021-03-22)
DX: K25.4 Chronic or unspecified gastric ulcer with hemorrhage (principal); E43 Unspecified severe protein-calorie malnutrition; N17.0 Acute kidney failure with tubular necrosis; I50.32 Chronic diastolic (congestive) heart failure; I48.21 Permanent atrial fibrillation; I13.0 Hypertensive heart and chronic kidney disease with heart failure and stage 1 through stage 4 chronic kidney disease, or unspecified chronic kidney disease; C16.9 Malignant neoplasm of stomach, unspecified; F33.1 Major depressive disorder, recurrent, moderate; L12.0 Bullous pemphigoid; D62 Acute posthemorrhagic anemia; F41.1 Generalized anxiety disorder; M48.56XS Collapsed vertebra, not elsewhere classified, lumbar region, sequela of fracture; E11.22 Type 2 diabetes mellitus with diabetic chronic kidney disease; N18.32 Chronic kidney disease, stage 3b; E77.8 Other disorders of glycoprotein metabolism; G30.1 Alzheimer's disease with late onset; G89.29 Other chronic pain; F02.80 Dementia in other diseases classified elsewhere, unspecified severity, without behavioral disturbance, psychotic disturbance, mood disturbance, and anxiety; E11.42 Type 2 diabetes mellitus with diabetic polyneuropathy; K57.31 Diverticulosis of large intestine without perforation or abscess with bleeding; M47.816 Spondylosis without myelopathy or radiculopathy, lumbar region; E66.01 Morbid (severe) obesity due to excess calories; Z20.822 Contact with and (suspected) exposure to COVID-19; D12.3 Benign neoplasm of transverse colon; Z68.36 Body mass index [BMI] 36.0-36.9, adult; Z88.1 Allergy status to other antibiotic agents; Z88.6 Allergy status to analgesic agent; Z88.8 Allergy status to other drugs, medicaments and biological substances; Z90.49 Acquired absence of other specified parts of digestive tract; I25.2 Old myocardial infarction; Z82.49 Family history of ischemic heart disease and other diseases of the circulatory system; Z84.89 Family history of other specified conditions; Z80.9 Family history of malignant neoplasm, unspecified

== ENCOUNTER 2021-04-09 09:43 | Emergency (ER) | payer OTHER, MEDICAID ==
[~2021-04-09 09:43] MED LIST changes: +CLOBETASOL EMOL50 GM T; +IMODIUM A-D2 M2 PO; +Ipratropium Brom3 ML INH; +NAMENDA5 M1 PO; +RIVASTIGMINE TAR3 M1 PO; +TYLENOL EXTRA500 MG PO
[2021-04-09 09:54] VITALS: BP 00/00
== END 2021-04-09 09:50 ==
LOC: ED 09:43
DX: I21.3 ST elevation (STEMI) myocardial infarction of unspecified site (principal); I46.9 Cardiac arrest, cause unspecified; I48.91 Unspecified atrial fibrillation; I12.9 Hypertensive chronic kidney disease with stage 1 through stage 4 chronic kidney disease, or unspecified chronic kidney disease; N18.30 Chronic kidney disease, stage 3 unspecified; Z88.8 Allergy status to other drugs, medicaments and biological substances; Z79.899 Other long term (current) drug therapy